=== PATIENT | female | born 1950 | race Caucasian/White ===

== ENCOUNTER 2017-05-29 06:47 | Day surgery (SDC) | payer MEDICARE, BC ==
[~2017-05-29 06:47] MED LIST: Lactated Ringers 1,000 ML IV SCH
[2017-05-29] MEDS ORDERED: Propofol 200 MG/20 ML SDV IV ONE (08:00)
[2017-05-29] MEDS ORDERED: Midazolam 1 MG/ML 2 ML SDV IV ONE (08:00)
--- NOTE | 2017-05-29 08:40 | PCM.OPNOTE ---
- General Post-Op/Procedure Note Date of Surgery/Procedure: 05/29/17 Operative Procedure(s): c scope with bx Findings: sigmoid diverticulosis colon polyps ascending and transverse colon Pre Op Diagnosis: hx of colon polyps. diverticulosis Post-Op Diagnosis: sigmoid diverticulosis. colon polyps ascending and transverse colon Anesthesia Technique: MAC Primary Surgeon: Bryan Pabon Anesthesia Provider: Abigail Park Pathology: colon polyps ascending and transverse colon Complications: None Condition: Good Free Text/Narrative:: see dictation
[2017-05-29 09:54] VITALS: BP 147/88
--- NOTE | 2017-05-29 14:50 | OR ---
DATE OF OPERATION: 05/29/2017 SURGEON: Bryan Pabon MD PROCEDURE PERFORMED: Colonoscopy with cold forceps biopsy. PREOPERATIVE DIAGNOSIS: Personal history of colon polyps. POSTOPERATIVE DIAGNOSIS: Polyp, ascending colon and transverse colon. INDICATIONS OF PROCEDURE: Ms. Sutton is a 66-year-old white female, who has a history of recurring adenomatous polyps in the transverse colon. She initially was found to have some dysplasia. Repeat scope year later demonstrated recurrence which were biopsied and obliterated and again she presents now for a followup colonoscopy to see if there is some recurrence. DESCRIPTION OF OPERATION: After an excellent IV sedation was administered, digital rectal exam was performed. No marked abnormality was noted. The flexible colonoscope was inserted and advanced to the cecum without difficulty. The prep was excellent. The following findings were noted. Ascending colon, unremarkable except for the ascending colon more small polypoid lesion approximately 2 mm in size biopsied with cold biopsy forceps and sent for permanent. Transverse colon in the previously tattooed area where she does have adenomatous polyps, there were two small flat plaques consistent with what she had before. Multiple biopsies were taken of these two areas and these were removed. Remainder of the transverse colon was unremarkable. Descending colon unremarkable. Sigmoid, mild diverticulosis. Rectum and anus unremarkable. Colon was deflated. Scope was removed. The patient tolerated the procedure well and was taken to recovery room in good condition. /[id number] /MODL
== END 2017-05-29 09:38 | disposition home or self-care (01) ==
LOC: FB.SDS 06:47
PROVIDERS: ATTEND Surgery
DX: Z12.11 Encounter for screening for malignant neoplasm of colon (principal); D12.2 Benign neoplasm of ascending colon; D12.3 Benign neoplasm of transverse colon; K57.30 Diverticulosis of large intestine without perforation or abscess without bleeding; Z86.010 Personal history of colon polyps; E78.5 Hyperlipidemia, unspecified; I10 Essential (primary) hypertension; Z79.899 Other long term (current) drug therapy; Z90.49 Acquired absence of other specified parts of digestive tract; Z98.890 Other specified postprocedural states; F17.210 Nicotine dependence, cigarettes, uncomplicated
CPT/HCPCS: 00810; 45380; 88305; J2250; J2704; J7120

== ENCOUNTER 2019-09-29 07:07 | Day surgery (SDC) | payer MEDICARE, BC ==
[2019-09-29] MEDS ORDERED: Ondansetron 4 MG/2 ML SDV IVPUSH ONE (07:08)
[2019-09-29] MEDS ORDERED: Propofol 200 MG/20 ML SDV IV ONE (07:08)
[2019-09-29] MEDS ORDERED: Lidocaine 1% PF 2 ML SDV INJECT ONE (07:08)
[2019-09-29] MEDS ORDERED: Lactated Ringers 1,000 ML IV SCH (07:15)
[2019-09-29] MEDS ORDERED: Sodium Chloride 0.9% 10 ML Syringe FLUSH PRN (07:15)
--- NOTE | 2019-09-29 09:18 | PCM.OPNOTE ---
- General Post-Op/Procedure Note Date of Surgery/Procedure: 09/29/19 Operative Procedure(s): c scope Findings: diverticulosis s/p right hemicolectomy Pre Op Diagnosis: hx of dysplastic colon polyp Post-Op Diagnosis: Same Anesthesia Technique: GINA Primary Surgeon: Bryan Pabon Anesthesia Provider: Sean Sanchez Pathology: none Complications: None Condition: Good Free Text/Narrative:: see dictation
--- NOTE | 2019-09-29 10:18 | OR ---
DATE OF OPERATION: 09/29/2019 SURGEON: Bryan Pabon MD PROCEDURE PERFORMED: Colonoscopy. PREOPERATIVE DIAGNOSIS: Personal history of dysplastic colon polyp, status post right hemicolectomy. POSTOPERATIVE DIAGNOSIS: Sigmoid diverticulosis. INDICATIONS FOR PROCEDURE: This is a 68-year-old white female who underwent a right hemicolectomy for a dysplastic colon polyp of the ascending colon that could not be removed via endoscopic technique. She is essentially without complaints, presents now for followup scope. DESCRIPTION OF OPERATION: After an excellent IV sedation was administered, digital rectal exam was performed. No marked abnormality was noted. Flexible colonoscope was inserted, advanced to the ileocolic anastomosis. The following findings were noted. Transverse colon, unremarkable. Descending colon, unremarkable. Sigmoid, mild diverticulosis. Rectum and anus, unremarkable. The patient tolerated the procedure well. RECOMMENDATIONS: Repeat scope in 5 years. /[id number] /MODL
[2019-09-29 12:01] VITALS: BP 151/76; PULSE 88
== END 2019-09-29 10:07 | disposition home or self-care (01) ==
LOC: FB.SDS 07:07
PROVIDERS: ATTEND Surgery
DX: Z12.11 Encounter for screening for malignant neoplasm of colon (principal); K57.30 Diverticulosis of large intestine without perforation or abscess without bleeding; K21.9 Gastro-esophageal reflux disease without esophagitis; I10 Essential (primary) hypertension; E78.00 Pure hypercholesterolemia, unspecified; H40.1132 Primary open-angle glaucoma, bilateral, moderate stage; H40.9 Unspecified glaucoma; M19.90 Unspecified osteoarthritis, unspecified site; Z90.49 Acquired absence of other specified parts of digestive tract; Z86.010 Personal history of colon polyps; Z87.891 Personal history of nicotine dependence; Z79.899 Other long term (current) drug therapy
CPT/HCPCS: 00811; G0105; J2001; J2405; J2704; J7120

== ENCOUNTER 2020-11-15 07:46 | Inpatient (IN) | payer MEDICARE, BC ==
[~2020-11-15 07:46] MED LIST changes: -Lactated Ringers 1,000 ML IV SCH; +Sodium Chloride 0.9% 10 ML Syringe FLUSH PRN
[2020-11-15] MEDS: Lactated Ringers 1,000 ML IV SCH ×3 (08:15→21:58)
[2020-11-15] MEDS ORDERED: ceFAZolin 1 GM Vial IVPUSH ONE (09:00)
[2020-11-15] MEDS ORDERED: ceFAZolin 1 GM in Sodium Chloride 0.9% 50 ML IV ONE (09:00)
[2020-11-15] MEDS ORDERED: Lidocaine 1% with EPINEPHrine 1:100,000 20 ML MDV INJECT ONE (09:20)
[2020-11-15] MEDS ORDERED: Bupivacaine 0.5% 30 ML SDV INJECT ONE (09:21)
[2020-11-15] MEDS ORDERED: Acetaminophen/HYDROcodone 325-5 MG Tab PO PRN (11:21)
[2020-11-15] MEDS ORDERED: HYDROmorphone 2 MG/ML SDV IV ONE (11:30)
[2020-11-15] MEDS ORDERED: Ketorolac 30 MG/ML SDV IVPUSH ONE (11:30)
[2020-11-15] MEDS ORDERED: Labetalol 100 MG/20 ML MDV IV ONE (11:30)
[2020-11-15] MEDS ORDERED: Rocuronium 100 MG/10 ML MDV IV ONE (11:30)
[2020-11-15] MEDS ORDERED: Lactated Ringers 1,000 ML IV ONE (11:30)
[2020-11-15] MEDS ORDERED: hydrALAZINE 20 MG/ML SDV IV ONE (11:30)
[2020-11-15] MEDS ORDERED: Propofol 200 MG/20 ML SDV IV ONE (11:30)
[2020-11-15] MEDS ORDERED: diphenhydrAMINE 50 MG/ML SDV IVPUSH ONE (11:30)
[2020-11-15] MEDS ORDERED: Dexamethasone 4 MG/ML 5 ML MDV IVPUSH ONE (11:30)
[2020-11-15] MEDS ORDERED: fentaNYL 100 MCG/2 ML SDV IV ONE (11:30)
[2020-11-15] MEDS ORDERED: Neostigmine Methylsulfate 10 MG/10 ML MDV IVPUSH ONE (11:30)
[2020-11-15] MEDS ORDERED: Glycopyrrolate 0.2 MG/ML 5 ML MDV IV ONE (11:30)
[2020-11-15] MEDS ORDERED: Ondansetron 4 MG/2 ML SDV IVPUSH ONE (11:30)
[2020-11-15] MEDS ORDERED: Midazolam 1 MG/ML 2 ML SDV IV ONE (11:30)
--- NOTE | 2020-11-15 11:33 | PCM.OPNOTE ---
- General Post-Op/Procedure Note Date of Surgery/Procedure: 11/15/20 Operative Procedure(s): incisional hernia repair with mesh Findings: 12 cm defect over all with incarcerated omentum Pre Op Diagnosis: incisional hernia Post-Op Diagnosis: Same Anesthesia Technique: General LMA, Local (5 ml 1 % lido with epi/0.5% buvipicaine) Primary Surgeon: Bryan Pabon Anesthesia Provider: Abigail Park Pathology: hernia sac and contents EBL in mLs: 125 Complications: None Condition: Good Free Text/Narrative:: see dictation #[id number]
--- NOTE | 2020-11-15 14:28 | OR ---
DATE OF OPERATION: 11/15/2020 SURGEON: Bryan Pabon MD PROCEDURE PERFORMED: Incisional hernia repair. PREOPERATIVE DIAGNOSIS: Incisional hernia. POSTOPERATIVE DIAGNOSIS: Incisional hernia. INDICATIONS FOR PROCEDURE: This is a 70-year-old white female who underwent a colon resection several years ago for a large adenomatous polyp. She has developed an incisional hernia, most likely due to her postoperative smoking. She essentially stopped smoking over the past year, is feeling better, presents now for repair. FINDINGS: Intraoperative findings are as follows; 5 mL of 1:1 mixture of 1% lidocaine with epinephrine and 0.5% bupivacaine were used to infiltrate our area. The defect was fixed with a Ventrio ST hernia patch, 13 x 17.8 cm in size, reference #[id number], use by 05/07/2022, lot #[id number]. DESCRIPTION OF OPERATION: After an excellent LMA anesthetic was administered, the patient was prepped and draped in usual sterile manner. The area was infiltrated with 1:1 mixture of 1% lidocaine with epinephrine and 0.5% bupivacaine for a total of 5. Elliptical incision was then carried out, excising out the previous scar. A combination of sharp and LigaSure dissection was carried out mobilizing the sac from the surrounding structures. We did enter the sac inferiorly and using the LigaSure, we were able to completely transect this exposing the mucosa. There were multiple adhesions inside the hernia sac. These were taken down again using the LigaSure. The sac was then passed off the field. On the right lateral side of the patient's anterior abdominal wall, there were some adhesions that were taken down again using the LigaSure, and this was done to expose the anterior abdominal wall for a mesh placement. On completely mobilizing the omentum, there were several holes noted in the omentum and these were then transected using the LigaSure, and 3rd of the omentum was passed off the field. This was done to prevent internal hernia. Palpating inferiorly, there was also evidence of a [place]-cheese type hernia. Inferiorly, there was a noted defect in the area of the umbilicus. The small fascial bridge was taken down using the LigaSure and the surrounding subcu anterior fat was mobilized as well. Also superiorly, there was an additional defect that was treated in a likewise fashion making our fascial defect 1 continuous lesion. After taking down our defect, the fascia was approximated with a running #1 polypropylene suture. After coming up [address] way inferiorly, the mesh was then inserted into the abdominal wall and using the Stat Tacker, was tacked to the anterior abdominal wall circumferentially. The inferior suture was then continued to be closed incorporating the mesh into her suture as well. After closing the inferior half of our fascial defect, more tacks were placed to tack the mesh to the anterior abdominal wall. In a likewise fashion, the upper fascial defect was closed in a similar fashion with running #1 polypropylene incorporating the portion of the mesh that would adhere to the anterior abdominal wall and then prior to completely closing the defect, more tacks were used to tack the mesh of the superior half. The fascial defect was then closed. The 2 sutures were tied independently and then tied together. The area was irrigated. Our attention was then next turned to the umbilicus and dissect in mobilizing the skin and fascial defect. Inferiorly, there was a small keyhole approximately 2 cm made in the skin of the umbilicus. This was repaired anteriorly with a running 3-0 Vicryl and then using a 0 Vicryl, the umbilicus was tacked to the anterior abdominal wall to make her a " innie." The subcu fat was then approximated with running 0 Vicryl and ynes were used to close the skin. Needle, sponge, and instrument counts were reported as correct. EBL per anesthesia was 125 mL. Please see the anesthesia note for fluids. /[id number] /MODL
[2020-11-15] MEDS: Morphine 2 MG/ML SYRINGE IVPUSH PRN ×3 (15:16→22:00)
[2020-11-15] MEDS ORDERED: GLYCERIN 0.9% EYEBOTH PRN (16:18)
[2020-11-15] MEDS ORDERED: CARBOXYMETHYLCELLULOSE EYEBOTH PRN (16:18)
[2020-11-15] MEDS: Ketorolac 30 MG/ML SDV IVPUSH PRN (17:29)
[2020-11-15] MEDS: Ondansetron 4 MG/2 ML SDV IVPUSH PRN (17:29)
[2020-11-15] MEDS: atorvaSTATin 10 MG Tab PO SCH (20:45)
[2020-11-15] MEDS: Latanoprost 0.005% Ophth Soln 2.5 ML Bottle EYEBOTH SCH (20:45)
[2020-11-15] MEDS ORDERED: Lactated Ringers 1,000 ML IV SCH (21:00)
[2020-11-16] MEDS: Ondansetron 4 MG/2 ML SDV IVPUSH PRN ×2 (01:45→11:28)
[2020-11-16] MEDS: Lactated Ringers 1,000 ML IV SCH ×3 (04:34→18:19)
[2020-11-16] MEDS: Ketorolac 30 MG/ML SDV IVPUSH PRN ×3 (07:54→22:46)
[2020-11-16] MEDS ORDERED: Nicotine Polacrilex 2 MG Gum CHEW PRN (08:12)
[2020-11-16] MEDS ORDERED: Sodium Chloride 0.65% Nasal Spray 45 ML Bottle NAS PRN (08:25)
--- NOTE | 2020-11-16 08:39 | PCM.SURGPN ---
- General Info Date of Service: 11/16/20 POD#: 1 Functional Status: Reports: Ambulating, Urinating - Review of Systems Cardiovascular: Reports: No Symptoms Gastrointestinal: Reports: Abdominal Pain Skin: Reports: Other (red patch on the left lateral area ) - Patient Data Vitals - Most Recent: Last Vital Signs Temp 98.3 F 11/16/20 04:00 Pulse 117 H 11/16/20 04:00 Resp 16 11/16/20 04:00 BP 135/80 11/16/20 04:00 Pulse Ox 96 11/16/20 04:00 Weight - Most Recent: 69 kg I&O - Last 24 Hours: Intake & Output 11/15/20 11/16/20 11/16/20 22:59 06:59 14:59 Intake Total 240 120 Output Total 150 975 Balance 90 -855 Lab Results Last 24 Hrs: Laboratory Results - last 24 hr 11/15/20 11/16/20 Range/Units 21:15 06:15 WBC 17.9 H 16.5 H (3.0-10.3) x10-3/uL RBC 4.09 4.01 (3.60-5.20) x10(6)uL Hgb 12.9 12.5 (11.4-15.5) g/dL Hct 39.9 39.0 (34.2-48.2) % MCV 97.6 97.4 (76.7-100.5) fL MCH 31.5 31.2 (23.9-33.9) pg MCHC 32.3 32.1 (31.9-34.8) g/dL RDW 12.4 12.7 (12.3-16.5) % Plt Count 278 275 (151-488) x10(3)uL MPV 8.6 7.9 (7.1-12.4) fL Neut % (Auto) 92.3 H (30.8-76.2) % Lymph % (Auto) 3.3 L (18.4-52.1) % [place] % (Auto) 4.4 (4.4-15.7) % Eos % (Auto) 0.0 L (0.6-8.1) % Baso % (Auto) 0.0 L (0.2-1.5) % Neut # (Auto) 16.5 H (1.5-6.3) x10-3/uL Lymph # (Auto) 0.6 L (1.0-4.4) x10-3/uL [place] # (Auto) 0.8 (0.3-1.0) x10-3/uL Eos # (Auto) 0.0 (0.0-0.8) x10-3/uL Baso # (Auto) 0.0 (0.0-0.1) x10-3/uL Add Manual Diff Yes Neutrophils % (Manual) 78 (46-82) % Band Neutrophils % 5 (0-6) % Lymphocytes % (Manual) 11 L (13-37) % Monocytes % (Manual) 6 (4-12) % Med Orders - Current: Current Medications Hydrocodone Bitart/Acetaminophen ([place] 325-5 Mg) 1 tab PO Q4H PRN PRN Reason: Pain (mild 1-3) Atorvastatin Calcium (Lipitor) 10 mg PO BEDTIME [facility] Last Admin: 11/15/20 20:45 Dose: 10 mg Documented by: Carboxymethylcellulose (Refresh Optive) 0 ml EYEBOTH Q4H PRN PRN Reason: Dry Eyes Lactated Ringer's (Ringers, Lactated) 1,000 mls @ 150 mls/hr IV ASDIRECTED [facility] Last Admin: 11/16/20 04:34 Dose: 150 mls/hr Documented by: Ketorolac Tromethamine (Toradol) 30 mg IVPUSH Q6H PRN PRN Reason: Pain Stop: 11/20/20 11:24 Latanoprost (Xalatan 0.005% [facility] Sol) 0 ml EYEBOTH BEDTIME [facility] Last Admin: 11/15/20 20:45 Dose: 1 drop Documented by: Lisinopril (Prinivil) 10 mg PO DAILY [facility] Morphine Sulfate (Morphine) 2 mg IVPUSH Q1H PRN PRN Reason: Pain (severe 7-10) Last Admin: 11/15/20 22:00 Dose: 2 mg Documented by: Nicotine (Habitrol) 14 mg TRDERM DAILY [facility] Nicotine Polacrilex (Nicorelief) 2 mg CHEW Q2H PRN PRN Reason: Other Ondansetron HCl (Zofran) 4 mg IVPUSH Q6H PRN PRN Reason: Nausea/Vomiting Last Admin: 11/16/20 01:45 Dose: 4 mg Documented by: Sodium Chloride (Saline Flush) 10 ml FLUSH ASDIRECTED PRN PRN Reason: Keep Vein Open Sodium Chloride ([place] Nasal [place]) 1 ml RADHA Q2H PRN PRN Reason: Nasal Dryness Discontinued Medications Bupivacaine HCl (Marcaine 0.5%) 10 ml INJECT .STK-MED ONE Stop: 11/15/20 09:22 Last Admin: 11/15/20 09:21 Dose: 10 ml Documented by: Cefazolin Sodium (Ancef) 1 gm IVPUSH ONETIME ONE Stop: 11/15/20 09:01 Last Admin: 11/15/20 08:34 Dose: 1 gm Documented by: Lactated Ringer's (Ringers, Lactated) 1,000 mls @ 150 mls/hr IV ASDIRECTED [facility] Last Admin: 11/15/20 14:13 Dose: 125 mls/hr Documented by: Lactated Ringer's (Ringers, Lactated) 1,000 mls @ 999 mls/hr IV ASDIRECTED [facility] Last Admin: 11/15/20 20:57 Dose: 999 mls/hr Documented by: Ketorolac Tromethamine (Toradol) 30 mg IVPUSH Q8H PRN PRN Reason: Pain Stop: 11/20/20 11:24 Last Admin: 11/16/20 07:54 Dose: 30 mg Documented by: Lidocaine/Epinephrine (Xylocaine 1% With Epinephrine 1:100,000) 10 ml INJECT .STK-MED ONE Stop: 11/15/20 09:21 Last Admin: 11/15/20 09:20 Dose: 10 ml Documented by: - Exam Wound/Incisions: Dressing Dry and Intact General: Alert, Oriented, Cooperative, No Acute Distress Lungs: Clear to Auscultation, Normal Respiratory Effort Cardiovascular: Regular Rate, Regular Rhythm, Tachycardia (had episodes of tachycardia through the night better this am ) GI/Abdominal Exam: Normal Bowel Sounds, Non-Tender Skin: Warm, Dry, Other (red area left lateral abd wall, nontender, not warm to touch, ? bruise from surgery ) Psy/Mental Status: Alert, Normal Affect, Normal Mood Sepsis Event Note - Evaluation Sepsis Screening Result: No Definite Risk - Focused Exam Vital Signs: Vital Signs Temp Pulse Resp BP Pulse Ox 11/16/20 04:00 98.3 F 117 H 16 135/80 96 11/16/20 00:00 97.8 F 120 H 16 144/86 H 95 - Problem List & Annotations (1) Incisional hernia SNOMED Code(s): 150575603 Code(s): K43.2 - INCISIONAL HERNIA WITHOUT OBSTRUCTION OR GANGRENE Status: Acute Current Visit: Yes Qualifiers: Obstruction and gangrene presence: without obstruction or gangrene Qualified Code(s): K43.2 - Incisional hernia without obstruction or gangrene; K43.91 - Incisional hernia, without obstruction or gangrene - Problem List Review Problem List Initiated/Reviewed/Updated: Yes - My Orders Last 24 Hours: Active Orders 24 hr Category Date Time Status Admission Status [Patient Status] [ADT] Routine ADT 11/16/20 08:10 Active Ambulate [RC] .TID Care 11/15/20 11:21 Active Notify Provider Vital Signs [RC] PRN Care 11/15/20 11:22 Active Oxygen Therapy [RC] PRN Care 11/15/20 11:21 Active RT Incentive Spirometry [RC] ASDIRECTED Care 11/15/20 07:45 Active RT Incentive Spirometry [RC] Q2HWA Care 11/15/20 11:21 Active Up ad Ayla [RC] ASDIRECTED Care 11/15/20 11:21 Active Vital Signs [RC] 00,04,08,12,16,20 Care 11/15/20 11:21 Active Clear Liquid Diet [DIET] Diet 11/15/20 Lunch Active Acetaminophen/HYDROcodone [[place] 325-5 MG] Med 11/15/20 11:21 Active 1 tab PO Q4H PRN Carboxymethylcellulos/Glycerin [Refresh Optive] Med 11/15/20 16:18 Active 0 ml EYEBOTH Q4H PRN Ketorolac [Toradol] Med 11/16/20 08:12 Active 30 mg IVPUSH Q6H PRN Lactated Ringers [Ringers, Lactated] 1,000 ml Med 11/15/20 22:15 Active IV ASDIRECTED Latanoprost [Xalatan 0.005% Ophth Soln] Med 11/15/20 21:00 Active 0 ml EYEBOTH BEDTIME Morphine Med 11/15/20 11:21 Active 2 mg IVPUSH Q1H PRN Nicotine Polacrilex [Nicorelief] Med 11/16/20 08:12 Stop Req 2 mg CHEW Q2H PRN Nicotine [Habitrol] Med 11/16/20 09:00 Active 14 mg TRDERM DAILY Ondansetron [Zofran] Med 11/15/20 11:21 Active 4 mg IVPUSH Q6H PRN Sodium Chloride 0.65% [[place] Nasal [place]] Med 11/16/20 08:25 Active 1 ml RADHA Q2H PRN Sodium Chloride 0.9% [Saline Flush] Med 11/15/20 07:45 Active 10 ml FLUSH ASDIRECTED PRN atorvaSTATin [Lipitor] Med 11/15/20 21:00 Active 10 mg PO BEDTIME lisinopriL [Prinivil] Med 11/16/20 09:00 Active 10 mg PO DAILY Abdominal Binder [OM.PC] Per Unit Routine Oth 11/15/20 11:22 Ordered Peripheral IV Insertion Adult [OM.PC] Routine Oth 11/15/20 07:45 Ordered Sequential Compression Device [OM.PC] Routine Oth 11/15/20 07:45 Ordered Medication Orders Hydrocodone Bitart/Acetaminophen ([place] 325-5 Mg) 1 tab PO Q4H PRN PRN Reason: Pain (mild 1-3) Atorvastatin Calcium (Lipitor) 10 mg PO BEDTIME [facility] Last Admin: 11/15/20 20:45 Dose: 10 mg Documented by: JENNIFER Carboxymethylcellulose (Refresh Optive) 0 ml EYEBOTH Q4H PRN PRN Reason: Dry Eyes Lactated Ringer's (Ringers, Lactated) 1,000 mls @ 150 mls/hr IV ASDIRECTED [facility] Last Admin: 11/16/20 04:34 Dose: 150 mls/hr Documented by: Infusion: 11/16/20 04:34 Dose: 150 mls/hr Documented by: Admin: 11/15/20 21:58 Dose: 150 mls/hr Documented by: JENNIFER Ketorolac Tromethamine (Toradol) 30 mg IVPUSH Q6H PRN PRN Reason: Pain Stop: 11/20/20 11:24 Latanoprost (Xalatan 0.005% Oph Soln) 0 ml EYEBOTH BEDTIME [facility] Last Admin: 11/15/20 20:45 Dose: 1 drop Documented by: JENNIFER Lisinopril (Prinivil) 10 mg PO DAILY [facility] Morphine Sulfate (Morphine) 2 mg IVPUSH Q1H PRN PRN Reason: Pain (severe 7-10) Last Admin: 11/15/20 22:00 Dose: 2 mg Documented by: Admin: 11/15/20 18:52 Dose: 2 mg Documented by: Admin: 11/15/20 15:16 Dose: 2 mg Documented by: DARIN Nicotine (Habitrol) 14 mg TRDERM DAILY [facility] Nicotine Polacrilex (Nicorelief) 2 mg CHEW Q2H PRN PRN Reason: Other Ondansetron HCl (Zofran) 4 mg IVPUSH Q6H PRN PRN Reason: Nausea/Vomiting Last Admin: 11/16/20 01:45 Dose: 4 mg Documented by: Admin: 11/15/20 17:29 Dose: 4 mg Documented by: DARIN Sodium Chloride (Saline Flush) 10 ml FLUSH ASDIRECTED PRN PRN Reason: Keep Vein Open Sodium Chloride ([place] Nasal [place]) 1 ml RADHA Q2H PRN PRN Reason: Nasal Dryness - Assessment Assessment (Free Text/Narrative):: stable exam tachycardia better probably due to being dry. good uo this am. red spot: not sure what this represents will watch. does have an elevated wbc but feel this is secondary to surgery demargination. - Plan Plan (Free Text/Narrative):: clears. toradol to q 6 hrs
[2020-11-16] MEDS: Nicotine 14 MG/24 Hr Patch TRDERM SCH (09:06)
[2020-11-16] MEDS: Lisinopril 10 MG Tab PO SCH (09:07)
--- NOTE | 2020-11-16 16:53 | PCM.SN.2 ---
- Free Text/Narrative Note: Feels a little better. would like something to coat her stomach and is wondering about some ice cream voiding, ambulating, HR is better. abd soft nontender reddish llq area is bigger but now is starting to look like a bruise. still not warm, not tender improving clinically will decrease ivf rate. full liquid diet.
[2020-11-16] MEDS: Pantoprazole 40 MG Vial IVPUSH SCH (18:19)
[2020-11-16] MEDS: atorvaSTATin 10 MG Tab PO SCH (21:08)
[2020-11-16] MEDS: Latanoprost 0.005% Ophth Soln 2.5 ML Bottle EYEBOTH SCH (21:08)
[2020-11-17] MEDS: Lactated Ringers 1,000 ML IV SCH (01:57)
--- NOTE | 2020-11-17 08:01 | PCM.SURGPN ---
- General Info Date of Service: 11/17/20 POD#: 2 Functional Status: Reports: Pain Controlled, Tolerating Diet, Ambulating, Urinating, Other (flatus ) - Patient Data Vitals - Most Recent: Last Vital Signs Temp 98.2 F 11/17/20 04:00 Pulse 106 H 11/17/20 04:00 Resp 16 11/17/20 04:00 BP 147/86 H 11/17/20 04:00 Pulse Ox 93 L 11/17/20 04:00 Weight - Most Recent: 69 kg I&O - Last 24 Hours: Intake & Output 11/16/20 11/17/20 11/17/20 22:59 06:59 14:59 Intake Total 1045 1236 Output Total 1050 2250 400 Balance -5 -1014 -400 Med Orders - Current: Current Medications Hydrocodone Bitart/Acetaminophen ([place] 325-5 Mg) 1 tab PO Q4H PRN PRN Reason: Pain (mild 1-3) Atorvastatin Calcium (Lipitor) 10 mg PO BEDTIME [facility] Last Admin: 11/16/20 21:08 Dose: 10 mg Documented by: Carboxymethylcellulose (Refresh Optive) 0 ml EYEBOTH Q4H PRN PRN Reason: Dry Eyes Celecoxib (Celebrex) 200 mg PO BID [facility] Lactated Ringer's (Ringers, Lactated) 1,000 mls @ 0 mls/hr IV ASDIRECTED [facility] Last Admin: 11/17/20 01:57 Dose: 125 mls/hr Documented by: Latanoprost (Xalatan 0.005% Ophth Soln) 0 ml EYEBOTH BEDTIME [facility] Last Admin: 11/16/20 21:08 Dose: 1 drop Documented by: Lisinopril (Prinivil) 10 mg PO DAILY [facility] Last Admin: 11/16/20 09:07 Dose: 10 mg Documented by: Morphine Sulfate (Morphine) 2 mg IVPUSH Q1H PRN PRN Reason: Pain (severe 7-10) Last Admin: 11/15/20 22:00 Dose: 2 mg Documented by: Nicotine (Habitrol) 14 mg TRDERM DAILY [facility] Last Admin: 11/16/20 09:06 Dose: 14 mg Documented by: Ondansetron HCl (Zofran) 4 mg IVPUSH Q6H PRN PRN Reason: Nausea/Vomiting Last Admin: 11/16/20 11:28 Dose: 4 mg Documented by: Pantoprazole Sodium (Protonix Iv) 40 mg IVPUSH Q24H [facility] Last Admin: 11/16/20 18:19 Dose: 40 mg Documented by: Sodium Chloride (Saline Flush) 10 ml FLUSH ASDIRECTED PRN PRN Reason: Keep Vein Open Sodium Chloride ([place] Nasal [place]) 1 ml RADHA Q2H PRN PRN Reason: Nasal Dryness Discontinued Medications Bupivacaine HCl (Marcaine 0.5%) 10 ml INJECT .STK-MED ONE Stop: 11/15/20 09:22 Last Admin: 11/15/20 09:21 Dose: 10 ml Documented by: Cefazolin Sodium (Ancef) 1 gm IVPUSH ONETIME ONE Stop: 11/15/20 09:01 Last Admin: 11/15/20 08:34 Dose: 1 gm Documented by: Lactated Ringer's (Ringers, Lactated) 1,000 mls @ 150 mls/hr IV ASDIRECTED [facility] Last Admin: 11/15/20 14:13 Dose: 125 mls/hr Documented by: Lactated Ringer's (Ringers, Lactated) 1,000 mls @ 999 mls/hr IV ASDIRECTED [facility] Last Admin: 11/15/20 20:57 Dose: 999 mls/hr Documented by: Ketorolac Tromethamine (Toradol) 30 mg IVPUSH Q8H PRN PRN Reason: Pain Stop: 11/20/20 11:24 Last Admin: 11/16/20 07:54 Dose: 30 mg Documented by: Ketorolac Tromethamine (Toradol) 30 mg IVPUSH Q6H PRN PRN Reason: Pain Stop: 11/20/20 11:24 Last Admin: 11/16/20 22:46 Dose: 30 mg Documented by: Lidocaine/Epinephrine (Xylocaine 1% With Epinephrine 1:100,000) 10 ml INJECT .STK-MED ONE Stop: 11/15/20 09:21 Last Admin: 11/15/20 09:20 Dose: 10 ml Documented by: Nicotine Polacrilex (Nicorelief) 2 mg CHEW Q2H PRN PRN Reason: Other - Exam Wound/Incisions: Healing Well, No Drainage Lungs: Clear to Auscultation, Normal Respiratory Effort Cardiovascular: Regular Rate, Regular Rhythm GI/Abdominal Exam: Normal Bowel Sounds, Soft, Tender (along incision ) Skin: Warm, Dry, Intact, Other (the discolored spot in the llq definitely has the appearence of some bruising no change ) Sepsis Event Note - Evaluation Sepsis Screening Result: No Definite Risk - Focused Exam Vital Signs: Vital Signs Temp Pulse Resp BP Pulse Ox 11/17/20 04:00 98.2 F 106 H 16 147/86 H 93 L 11/16/20 20:00 98.0 F 109 H 16 151/86 H 95 - Problem List & Annotations (1) Incisional hernia SNOMED Code(s): 728236894 Code(s): K43.2 - INCISIONAL HERNIA WITHOUT OBSTRUCTION OR GANGRENE Status: Acute Current Visit: Yes Qualifiers: Obstruction and gangrene presence: without obstruction or gangrene Qualified Code(s): K43.2 - Incisional hernia without obstruction or gangrene; K43.91 - Incisional hernia, without obstruction or gangrene - Problem List Review Problem List Initiated/Reviewed/Updated: Yes - My Orders Last 24 Hours: Active Orders 24 hr Category Date Time Status Admission Status [Patient Status] [ADT] Routine ADT 11/16/20 08:10 Active Regular Diet [DIET] Diet 11/17/20 Lunch Ordered Celecoxib [CeleBREX] Med 11/17/20 09:00 Ordered 200 mg PO BID Nicotine [Habitrol] Med 11/16/20 09:00 Active 14 mg TRDERM DAILY Pantoprazole [ProTONIX IV] Med 11/16/20 17:00 Active 40 mg IVPUSH Q24H Sodium Chloride 0.65% [[place] Nasal [place]] Med 11/16/20 08:25 Active 1 ml RADHA Q2H PRN lisinopriL [Prinivil] Med 11/16/20 09:00 Active 10 mg PO DAILY Medication Orders Hydrocodone Bitart/Acetaminophen ([facility] [place] 325-5 Mg) 1 tab PO Q4H PRN PRN Reason: Pain (mild 1-3) Atorvastatin Calcium (Lipitor) 10 mg PO BEDTIME [facility] Last Admin: 11/16/20 21:08 Dose: 10 mg Documented by: Admin: 11/15/20 20:45 Dose: 10 mg Documented by: JENNIFER Carboxymethylcellulose (Refresh Optive) 0 ml EYEBOTH Q4H PRN PRN Reason: Dry Eyes Celecoxib (Celebrex) 200 mg PO BID [facility] Lactated Ringer's (Ringers, Lactated) 1,000 mls @ 0 mls/hr IV ASDIRECTED [facility] Last Admin: 11/17/20 01:57 Dose: 125 mls/hr Documented by: Infusion: 11/17/20 01:57 Dose: 125 mls/hr Documented by: Infusion: 11/16/20 18:20 Dose: 125 mls/hr Documented by: Admin: 11/16/20 18:19 Dose: 150 mls/hr Documented by: Infusion: 11/16/20 18:06 Dose: 150 mls/hr Documented by: Admin: 11/16/20 11:25 Dose: 150 mls/hr Documented by: Infusion: 11/16/20 11:15 Dose: 150 mls/hr Documented by: Admin: 11/16/20 04:34 Dose: 150 mls/hr Documented by: Infusion: 11/16/20 04:34 Dose: 150 mls/hr Documented by: Admin: 11/15/20 21:58 Dose: 150 mls/hr Documented by: JENNIFER Latanoprost (Xalatan 0.005% Ophth Soln) 0 ml EYEBOTH BEDTIME [facility] Last Admin: 11/16/20 21:08 Dose: 1 drop Documented by: Admin: 11/15/20 20:45 Dose: 1 drop Documented by: JENNIFER Lisinopril (Prinivil) 10 mg PO DAILY [facility] Last Admin: 11/16/20 09:07 Dose: 10 mg Documented by: DARIN Morphine Sulfate (Morphine) 2 mg IVPUSH Q1H PRN PRN Reason: Pain (severe 7-10) Last Admin: 11/15/20 22:00 Dose: 2 mg Documented by: Admin: 11/15/20 18:52 Dose: 2 mg Documented by: Admin: 11/15/20 15:16 Dose: 2 mg Documented by: DARIN Nicotine (Habitrol) 14 mg TRDERM DAILY [facility] Last Admin: 11/16/20 09:06 Dose: 14 mg Documented by: DARIN Ondansetron HCl (Zofran) 4 mg IVPUSH Q6H PRN PRN Reason: Nausea/Vomiting Last Admin: 11/16/20 11:28 Dose: 4 mg Documented by: Admin: 11/16/20 01:45 Dose: 4 mg Documented by: Admin: 11/15/20 17:29 Dose: 4 mg Documented by: DARIN Pantoprazole Sodium (Protonix Iv) 40 mg IVPUSH Q24H [facility] Last Admin: 11/16/20 18:19 Dose: 40 mg Documented by: DARIN Sodium Chloride (Saline Flush) 10 ml FLUSH ASDIRECTED PRN PRN Reason: Keep Vein Open Sodium Chloride ([place] Nasal [place]) 1 ml RADHA Q2H PRN PRN Reason: Nasal Dryness - Assessment Assessment (Free Text/Narrative):: making progress - Plan Plan (Free Text/Narrative):: regular diet kvo iv po celebrex stop toradol does not want to take narc but norco is available.
[2020-11-17] MEDS: Lisinopril 10 MG Tab PO SCH (08:59)
[2020-11-17] MEDS: Celecoxib 200 MG Cap PO SCH ×2 (08:59→20:47)
[2020-11-17] MEDS ORDERED: Acetaminophen 325 MG Tab PO PRN (16:26)
--- NOTE | 2020-11-17 17:41 | PCM.SN.2 ---
- Free Text/Narrative Note: tolerating diet. pain is controlled with tylenol. anticipating dc in am.
[2020-11-17] MEDS: Nicotine 14 MG/24 Hr Patch TRDERM SCH (18:07)
[2020-11-17] MEDS: Pantoprazole 40 MG Vial IVPUSH SCH (18:07)
[2020-11-17] MEDS: Latanoprost 0.005% Ophth Soln 2.5 ML Bottle EYEBOTH SCH (20:46)
[2020-11-17] MEDS: atorvaSTATin 10 MG Tab PO SCH (20:47)
[2020-11-18 08:27] VITALS: BP 142/88
[2020-11-18] MEDS: Lisinopril 10 MG Tab PO SCH (08:27)
[2020-11-18] MEDS: Nicotine 14 MG/24 Hr Patch TRDERM SCH (08:27)
--- NOTE | 2020-11-18 09:23 | PCM.DCSUM1 ---
Discharge Summary - Hospital Course Free Text/Narrative:: Pt underwent an incisional hernia repair. Was watched overnight due to the complexity of the hernia. Slowly advanced on her diet. Pain control was done primarily with toradol as she did not want to have any narcotics. She developed a bruising spot in her llq which has resolved. She also developed a leukocytosis which appeared to be the result of demargination. This has slowly come down. She was admitted on POD #1 due to the wbc, and the rate of her ability to tolerate a diet. On day of discharge she is tolerating diet, passing gas. Does not want narcotics and notes good pain control with tylenol and celebrex. - Discharge Data Discharge Date: 11/18/20 Discharge Disposition: Home, Self-Care 01 Condition: Good - Referral to Home Health Primary Care Physician: Jase Jacobs MD - Discharge Diagnosis/Problem(s) (1) Incisional hernia SNOMED Code(s): 871510836 ICD Code: K43.2 - INCISIONAL HERNIA WITHOUT OBSTRUCTION OR GANGRENE Status: Resolved Current Visit: Yes Qualifiers: Obstruction and gangrene presence: without obstruction or gangrene Qualified Code(s): K43.2 - Incisional hernia without obstruction or gangrene; K43.91 - Incisional hernia, without obstruction or gangrene - Patient Summary/Data Operative Procedure(s) Performed: incisional hernia repair with mesh - Patient Instructions Diet: Usual Diet as Tolerated, No Alcoholic Beverages Activity: No Lifting Over 25 Pounds, No Strenuous Activities Driving: Do Not Drive (until Friday ) Showering/Bathing: May Shower, No Tub Bathing/Swimming Notify Provider of: Fever, Increased Pain, Swelling and Redness, Drainage - Discharge Plan *PRESCRIPTION DRUG MONITORING PROGRAM REVIEWED*: Not Applicable *COPY OF PRESCRIPTION DRUG MONITORING REPORT IN PATIENT SHILPA: Not Applicable Prescriptions/Med Rec: Celecoxib [CeleBREX] 200 mg PO BID #10 cap Home Medications: Home Meds Lisinopril 10 mg PO DAILY 09/30/13 [History] Multivitamin with Minerals [Antioxidant Vitamin] 1 each PO DAILY 09/30/13 [History] atorvaSTATin Calcium [Atorvastatin Calcium] 10 mg PO DAILY 09/30/13 [History] diphenhydrAMINE [Benadryl] 50 mg PO ASDIRECTED 09/30/13 [History] Carboxymethylcellulos/Glycerin [Refresh Optive] 1 drop EYEBOTH Q4H PRN 06/04/18 [History] Latanoprost 1 drop EYEBOTH BEDTIME 09/16/18 [History] Glucosam/Chondr/Collagn/Hyalur [Glucosamine & Chondroitin Cap] 1 each PO DAILY 09/28/19 [History] Celecoxib [CeleBREX] 200 mg PO BID #10 cap 11/18/20 [Rx] Referrals: Bryan Pabon MD [Physician] - 11/24/20 (for staple removal ) - Discharge Summary/Plan Comment DC Time >30 min.: No - Patient Data Vitals - Most Recent: Last Vital Signs Temp 97.9 F 11/18/20 03:30 Pulse 91 11/18/20 03:30 Resp 18 11/18/20 03:30 BP 142/88 H 11/18/20 08:27 Pulse Ox 95 11/18/20 03:30 Weight - Most Recent: 69 kg Med Orders - Current: Current Medications Acetaminophen (Tylenol) 650 mg PO Q4H PRN PRN Reason: Pain Last Admin: 11/17/20 16:47 Dose: 650 mg Documented by: Hydrocodone Bitart/Acetaminophen ([place] 325-5 Mg) 1 tab PO Q4H PRN PRN Reason: Pain (mild 1-3) Atorvastatin Calcium (Lipitor) 10 mg PO BEDTIME [facility] Last Admin: 11/17/20 20:47 Dose: 10 mg Documented by: Carboxymethylcellulose (Refresh Optive) 0 ml EYEBOTH Q4H PRN PRN Reason: Dry Eyes Celecoxib (Celebrex) 200 mg PO BID [facility] Last Admin: 11/17/20 20:47 Dose: 200 mg Documented by: Latanoprost (Xalatan 0.005% Ophth Soln) 0 ml EYEBOTH BEDTIME [facility] Last Admin: 11/17/20 20:46 Dose: 1 drop Documented by: Lisinopril (Prinivil) 10 mg PO DAILY [facility] Last Admin: 11/18/20 08:27 Dose: 10 mg Documented by: Morphine Sulfate (Morphine) 2 mg IVPUSH Q1H PRN PRN Reason: Pain (severe 7-10) Last Admin: 11/15/20 22:00 Dose: 2 mg Documented by: Nicotine (Habitrol) 14 mg TRDERM DAILY [facility] Last Admin: 11/18/20 08:27 Dose: Not Given Documented by: Ondansetron HCl (Zofran) 4 mg IVPUSH Q6H PRN PRN Reason: Nausea/Vomiting Last Admin: 11/16/20 11:28 Dose: 4 mg Documented by: Pantoprazole Sodium (Protonix Iv) 40 mg IVPUSH Q24H [facility] Last Admin: 11/17/20 18:07 Dose: 40 mg Documented by: Sodium Chloride (Saline Flush) 10 ml FLUSH ASDIRECTED PRN PRN Reason: Keep Vein Open Sodium Chloride ([place] Nasal [place]) 1 ml RADHA Q2H PRN PRN Reason: Nasal Dryness Discontinued Medications Bupivacaine HCl (Marcaine 0.5%) 10 ml INJECT .STK-MED ONE Stop: 11/15/20 09:22 Last Admin: 11/15/20 09:21 Dose: 10 ml Documented by: Cefazolin Sodium (Ancef) 1 gm IVPUSH ONETIME ONE Stop: 11/15/20 09:01 Last Admin: 11/15/20 08:34 Dose: 1 gm Documented by: Lactated Ringer's (Ringers, Lactated) 1,000 mls @ 150 mls/hr IV ASDIRECTED [facility] Last Admin: 11/15/20 14:13 Dose: 125 mls/hr Documented by: Lactated Ringer's (Ringers, Lactated) 1,000 mls @ 999 mls/hr IV ASDIRECTED [facility] Last Admin: 11/15/20 20:57 Dose: 999 mls/hr Documented by: Lactated Ringer's (Ringers, Lactated) 1,000 mls @ 0 mls/hr IV ASDIRECTED [facility] Last Infusion: 11/17/20 08:58 Dose: 30 mls/hr Documented by: Ketorolac Tromethamine (Toradol) 30 mg IVPUSH Q8H PRN PRN Reason: Pain Stop: 11/20/20 11:24 Last Admin: 11/16/20 07:54 Dose: 30 mg Documented by: Ketorolac Tromethamine (Toradol) 30 mg IVPUSH Q6H PRN PRN Reason: Pain Stop: 11/20/20 11:24 Last Admin: 11/16/20 22:46 Dose: 30 mg Documented by: Lidocaine/Epinephrine (Xylocaine 1% With Epinephrine 1:100,000) 10 ml INJECT .[facility]-MED ONE Stop: 11/15/20 09:21 Last Admin: 11/15/20 09:20 Dose: 10 ml Documented by: Nicotine Polacrilex (Nicorelief) 2 mg CHEW Q2H PRN PRN Reason: Other
[2020-11-18] MEDS ORDERED: Bisacodyl 10 MG Supp RECTAL ONE (09:25)
--- NOTE | 2020-11-18 09:25 | PCM.SURGPN ---
- General Info Date of Service: 11/18/20 POD#: 3 Functional Status: Reports: Pain Controlled, Tolerating Diet, Ambulating, Urinating - Review of Systems General: Reports: No Symptoms Pulmonary: Reports: No Symptoms Cardiovascular: Reports: No Symptoms Gastrointestinal: Reports: Flatus, Other (no bm ) Skin: Reports: No Symptoms - Patient Data Vitals - Most Recent: Last Vital Signs Temp 97.9 F 11/18/20 03:30 Pulse 91 11/18/20 03:30 Resp 18 11/18/20 03:30 BP 142/88 H 11/18/20 08:27 Pulse Ox 95 11/18/20 03:30 Weight - Most Recent: 69 kg Med Orders - Current: Current Medications Acetaminophen (Tylenol) 650 mg PO Q4H PRN PRN Reason: Pain Last Admin: 11/17/20 16:47 Dose: 650 mg Documented by: Hydrocodone Bitart/Acetaminophen ([place] 325-5 Mg) 1 tab PO Q4H PRN PRN Reason: Pain (mild 1-3) Atorvastatin Calcium (Lipitor) 10 mg PO BEDTIME [facility] Last Admin: 11/17/20 20:47 Dose: 10 mg Documented by: Carboxymethylcellulose (Refresh Optive) 0 ml EYEBOTH Q4H PRN PRN Reason: Dry Eyes Celecoxib (Celebrex) 200 mg PO BID [facility] Last Admin: 11/17/20 20:47 Dose: 200 mg Documented by: Latanoprost (Xalatan 0.005% Ophth Soln) 0 ml EYEBOTH BEDTIME [facility] Last Admin: 11/17/20 20:46 Dose: 1 drop Documented by: Lisinopril (Prinivil) 10 mg PO DAILY [facility] Last Admin: 11/18/20 08:27 Dose: 10 mg Documented by: Morphine Sulfate (Morphine) 2 mg IVPUSH Q1H PRN PRN Reason: Pain (severe 7-10) Last Admin: 11/15/20 22:00 Dose: 2 mg Documented by: Nicotine (Habitrol) 14 mg TRDERM DAILY [facility] [place] Last Admin: 11/18/20 08:27 Dose: Not Given Documented by: Ondansetron HCl (Zofran) 4 mg IVPUSH Q6H PRN PRN Reason: Nausea/Vomiting Last Admin: 11/16/20 11:28 Dose: 4 mg Documented by: Pantoprazole Sodium (Protonix Iv) 40 mg IVPUSH Q24H [facility] Last Admin: 11/17/20 18:07 Dose: 40 mg Documented by: Sodium Chloride (Saline Flush) 10 ml FLUSH ASDIRECTED PRN PRN Reason: Keep Vein Open Sodium Chloride ([place] Nasal [place]) 1 ml RADHA Q2H PRN PRN Reason: Nasal Dryness Discontinued Medications Bupivacaine HCl (Marcaine 0.5%) 10 ml INJECT .STK-MED ONE Stop: 11/15/20 09:22 Last Admin: 11/15/20 09:21 Dose: 10 ml Documented by: Cefazolin Sodium (Ancef) 1 gm IVPUSH ONETIME ONE Stop: 11/15/20 09:01 Last Admin: 11/15/20 08:34 Dose: 1 gm Documented by: Lactated Ringer's (Ringers, Lactated) 1,000 mls @ 150 mls/hr IV ASDIRECTED [facility] Last Admin: 11/15/20 14:13 Dose: 125 mls/hr Documented by: Lactated Ringer's (Ringers, Lactated) 1,000 mls @ 999 mls/hr IV ASDIRECTED [facility] Last Admin: 11/15/20 20:57 Dose: 999 mls/hr Documented by: Lactated Ringer's (Ringers, Lactated) 1,000 mls @ 0 mls/hr IV ASDIRECTED [facility] Last Infusion: 11/17/20 08:58 Dose: 30 mls/hr Documented by: Ketorolac Tromethamine (Toradol) 30 mg IVPUSH Q8H PRN PRN Reason: Pain Stop: 11/20/20 11:24 Last Admin: 11/16/20 07:54 Dose: 30 mg Documented by: Ketorolac Tromethamine (Toradol) 30 mg IVPUSH Q6H PRN PRN Reason: Pain Stop: 11/20/20 11:24 Last Admin: 11/16/20 22:46 Dose: 30 mg Documented by: Lidocaine/Epinephrine (Xylocaine 1% With Epinephrine 1:100,000) 10 ml INJECT .STK-MED ONE Stop: 11/15/20 09:21 Last Admin: 11/15/20 09:20 Dose: 10 ml Documented by: Nicotine Polacrilex (Nicorelief) 2 mg CHEW Q2H PRN PRN Reason: Other - Exam Wound/Incisions: Healing Well General: Alert, Oriented, Cooperative, No Acute Distress Lungs: Clear to Auscultation, Normal Respiratory Effort Cardiovascular: Regular Rate, Regular Rhythm GI/Abdominal Exam: Normal Bowel Sounds, Soft, Tender (mild tenderness along incision ) Skin: Warm, Dry, Intact. No: Ecchymosis (area has resolved in the llq ) Psy/Mental Status: Alert, Normal Affect Sepsis Event Note - Evaluation Sepsis Screening Result: No Definite Risk - Focused Exam Vital Signs: Vital Signs Temp Pulse Resp BP BP Pulse Ox 11/18/20 08:27 142/88 H 11/18/20 03:30 97.9 F 91 18 130/94 H 95 11/18/20 00:00 18 - Problem List & Annotations (1) Incisional hernia SNOMED Code(s): 427196086 Code(s): K43.2 - INCISIONAL HERNIA WITHOUT OBSTRUCTION OR GANGRENE Status: Resolved Current Visit: Yes Qualifiers: Obstruction and gangrene presence: without obstruction or gangrene Qualified Code(s): K43.2 - Incisional hernia without obstruction or gangrene; K43.91 - Incisional hernia, without obstruction or gangrene - Problem List Review Problem List Initiated/Reviewed/Updated: Yes - My Orders Last 24 Hours: Active Orders 24 hr Category Date Time Status Ready for Discharge [RC] PER UNIT ROUTINE Care 11/18/20 09:18 Ordered Regular Diet [DIET] Diet 11/17/20 Lunch Active Acetaminophen [TylenoL] Med 11/17/20 16:26 Active 650 mg PO Q4H PRN Celecoxib [CeleBREX] Med 11/17/20 09:00 Active 200 mg PO BID Convert IV to Saline Lock [OM.PC] Routine Oth 11/17/20 16:25 Ordered Medication Orders Acetaminophen (Tylenol) 650 mg PO Q4H PRN PRN Reason: Pain Last Admin: 11/17/20 16:47 Dose: 650 mg Documented by: ANALIA Hydrocodone Bitart/Acetaminophen ([place] 325-5 Mg) 1 tab PO Q4H PRN PRN Reason: Pain (mild 1-3) Atorvastatin Calcium (Lipitor) 10 mg PO BEDTIME [facility] Last Admin: 11/17/20 20:47 Dose: 10 mg Documented by: Admin: 11/16/20 21:08 Dose: 10 mg Documented by: Admin: 11/15/20 20:45 Dose: 10 mg Documented by: JENNIFER Carboxymethylcellulose (Refresh Optive) 0 ml EYEBOTH Q4H PRN PRN Reason: Dry Eyes Celecoxib (Celebrex) 200 mg PO BID [facility] Last Admin: 11/17/20 20:47 Dose: 200 mg Documented by: Admin: 11/17/20 08:59 Dose: 200 mg Documented by: JAVI Latanoprost (Xalatan 0.005% Ophth Soln) 0 ml EYEBOTH BEDTIME [facility] Last Admin: 11/17/20 20:46 Dose: 1 drop Documented by: Admin: 11/16/20 21:08 Dose: 1 drop Documented by: Admin: 11/15/20 20:45 Dose: 1 drop Documented by: JENNIFER Lisinopril (Prinivil) 10 mg PO DAILY [facility] Last Admin: 11/18/20 08:27 Dose: 10 mg Documented by: Admin: 11/17/20 08:59 Dose: 10 mg Documented by: Admin: 11/16/20 09:07 Dose: 10 mg Documented by: DARIN Morphine Sulfate (Morphine) 2 mg IVPUSH Q1H PRN PRN Reason: Pain (severe 7-10) Last Admin: 11/15/20 22:00 Dose: 2 mg Documented by: Admin: 11/15/20 18:52 Dose: 2 mg Documented by: Admin: 11/15/20 15:16 Dose: 2 mg Documented by: DARIN Nicotine (Habitrol) 14 mg TRDERM DAILY [facility] Last Admin: 11/18/20 08:27 Dose: Not Given Documented by: Admin: 11/17/20 18:07 Dose: Not Given Documented by: Admin: 11/16/20 09:06 Dose: 14 mg Documented by: DARIN Ondansetron HCl (Zofran) 4 mg IVPUSH Q6H PRN PRN Reason: Nausea/Vomiting Last Admin: 11/16/20 11:28 Dose: 4 mg Documented by: Admin: 11/16/20 01:45 Dose: 4 mg Documented by: Admin: 11/15/20 17:29 Dose: 4 mg Documented by: DARIN Pantoprazole Sodium (Protonix Iv) 40 mg IVPUSH Q24H [facility] Last Admin: 11/17/20 18:07 Dose: 40 mg Documented by: Admin: 11/16/20 18:19 Dose: 40 mg Documented by: DARIN Sodium Chloride (Saline Flush) 10 ml FLUSH ASDIRECTED PRN PRN Reason: Keep Vein Open Sodium Chloride ([place] Nasal [place]) 1 ml RADHA Q2H PRN PRN Reason: Nasal Dryness - Assessment Assessment (Free Text/Narrative):: ready for discharge
[2020-11-18 13:25] VITALS: PULSE 92
== END 2020-11-18 12:20 | disposition home or self-care (01) | DRG 395 ==
LOC: FB.SDS 07:46 → FB.MS 10:37 → UNDOADMOB 10:37 → OBSVTOIN 11-16 08:10 → INTOOBSV 11-16 08:10 → FB.MS 11-16 08:10 → UNDODISIN 11-18 12:20
PROVIDERS: ADMIT Surgery; ATTEND Surgery
DX: K43.0 Incisional hernia with obstruction, without gangrene (principal); K43.2 Incisional hernia without obstruction or gangrene; Z79.899 Other long term (current) drug therapy; E78.5 Hyperlipidemia, unspecified; J30.9 Allergic rhinitis, unspecified; Z85.038 Personal history of other malignant neoplasm of large intestine; Z90.49 Acquired absence of other specified parts of digestive tract; I10 Essential (primary) hypertension; Z87.891 Personal history of nicotine dependence
CPT/HCPCS: 00752-QZ; 36415; 85025; 94150; A9270-GY; C1781; C9113; G0378; J0360; J0690; J1100; J1170; J1200; J1885; J2250; J2270; J2405; J2704; J2710; J3010; J3490; J7120

== ENCOUNTER 2024-09-21 06:44 | Day surgery (SDC) | payer MEDICARE, BC ==
[2024-09-21] MEDS ORDERED: Midazolam 1 MG/ML 2 ML SDV IV ONE (06:45)
[2024-09-21] MEDS ORDERED: Sodium Chloride 0.9% 10 ML Syringe IV ONE (06:45)
[2024-09-21] MEDS ORDERED: fentaNYL 100 MCG/2 ML SDV IV ONE (06:45)
[2024-09-21] MEDS ORDERED: Sodium Chloride 0.9% 10 ML Syringe FLUSH PRN (06:45)
[2024-09-21] MEDS ORDERED: Lactated Ringers 1,000 ML IV PRN (06:45)
[2024-09-21] MEDS ORDERED: Ondansetron 4 MG/2 ML SDV IVPUSH ONE (06:45)
[2024-09-21] MEDS: acetaZOLAMIDE 500 MG Cap.ER PO ONE (09:17)
[2024-09-21 14:27] VITALS: BP 132/67; PULSE 83
== END 2024-09-21 09:36 | disposition home or self-care (01) ==
LOC: FB.SDS 06:44
PROVIDERS: ATTEND Ophthalmology
DX: H26.9 Unspecified cataract (principal); H40.1111 Primary open-angle glaucoma, right eye, mild stage; I10 Essential (primary) hypertension; E78.2 Mixed hyperlipidemia; Z87.891 Personal history of nicotine dependence
CPT/HCPCS: 66991; A9270; C1783; J2250; J2405; J3010; J3490; V2632; 00142; 99100

== ENCOUNTER 2024-10-05 06:37 | Day surgery (SDC) | payer MEDICARE, BC ==
[2024-10-05] MEDS ORDERED: Ondansetron 4 MG/2 ML SDV IVPUSH ONE (06:38)
[2024-10-05] MEDS ORDERED: Sodium Chloride 0.9% 10 ML Syringe IV ONE (06:38)
[2024-10-05] MEDS ORDERED: fentaNYL 100 MCG/2 ML SDV IV ONE (06:38)
[2024-10-05] MEDS ORDERED: Midazolam 1 MG/ML 2 ML SDV IV ONE (06:38)
[2024-10-05] MEDS ORDERED: Lactated Ringers 1,000 ML IV PRN (06:45)
[2024-10-05] MEDS: Sodium Chloride 0.9% 10 ML Syringe FLUSH PRN (07:30)
[2024-10-05] MEDS: acetaZOLAMIDE 500 MG Cap.ER PO ONE (09:47)
[2024-10-05 14:03] VITALS: BP 136/69; PULSE 81
== END 2024-10-05 10:05 | disposition home or self-care (01) ==
LOC: FB.SDS 06:37
PROVIDERS: ATTEND Ophthalmology
DX: H26.9 Unspecified cataract (principal); H40.1121 Primary open-angle glaucoma, left eye, mild stage; I10 Essential (primary) hypertension; E78.5 Hyperlipidemia, unspecified; Z87.891 Personal history of nicotine dependence
CPT/HCPCS: A9270-GY; J2250; J2405; J3010; J3490; V2632

== ENCOUNTER 2025-10-20 06:59 | Day surgery (SDC) | payer MEDICARE, BC ==
[2025-10-20] MEDS ORDERED: Propofol 200 MG/20 ML SDV IV ONE (07:00)
[2025-10-20] MEDS ORDERED: Sodium Chloride 0.9% 10 ML Syringe FLUSH PRN (07:15)
[2025-10-20 07:33] VITALS: BP 150/94; PULSE 96
[2025-10-20] MEDS: Lactated Ringers 1,000 ML IV SCH (07:42)
== END 2025-10-20 11:10 | disposition home or self-care (01) ==
LOC: FB.SDS 06:59
PROVIDERS: ATTEND Surgery
DX: Z12.11 Encounter for screening for malignant neoplasm of colon (principal); K57.30 Diverticulosis of large intestine without perforation or abscess without bleeding; K63.89 Other specified diseases of intestine; I10 Essential (primary) hypertension; Z98.0 Intestinal bypass and anastomosis status; Z90.49 Acquired absence of other specified parts of digestive tract; Z87.891 Personal history of nicotine dependence; Z79.899 Other long term (current) drug therapy; Z86.0101 Personal history of adenomatous and serrated colon polyps
CPT/HCPCS: A9270; G0105; J2003; J2704; J7120; 00144; 00811; 99100